=== PATIENT | female | born 1955 | race African-American/Black ===

== ENCOUNTER 2023-09-28 12:34 | Inpatient (IN) | payer MEDICARE, MEDICAID ==
[~2023-09-28] VITALS: Ht 167.6 cm; Wt 70.3 kg
[2023-09-28 13:09] VITALS: BP_SYST 125; PULSE 97; RESP 15; TEMP 97.6; O2SAT 100
[2023-09-28] MEDS: NACL 0.9% 1,000 ML IV ONE (13:31)
[2023-09-28 13:53] LABS: INR 1.2 (0.8-1.2); PROTHROMBIN TIME 12.3 SECS (9.5-12.5)
[2023-09-28 13:58] LABS: ALANINE AMINOTRANSFERASE 19 U/L (12-78); ALBUMIN 3.7 g/dL (3.4-4.8); ANION GAP 14 (5-15); ASPARTATE AMINOTRANSFERASE 61 U/L (10-37); BILIRUBIN,DIRECT 0.8 mg/dL (0.0-0.3); CALCIUM 7.9 mg/dL (8.4-11.0); CARBON DIOXIDE 19 mmol/L (23-29); CHLORIDE 106 mmol/L (98-107); CREATININE 0.77 mg/dL (0.55-1.30); GFR AFRICAN AMERICAN 96 mL/min (>90); GLUCOSE 94 mg/dL (74-106); LIPASE 21 U/L (16-77); POTASSIUM 3.5 mmol/L (3.5-5.1); SODIUM SERUM 139 mmol/L (136-145); TOTAL BILIRUBIN 2.8 mg/dL (0.0-1.0); TOTAL PROTEIN, SERUM 6.7 g/dL (6.4-8.3); UREA NITROGEN, BLOOD 16 mg/dL (8-21)
[2023-09-28 14:01] LABS: ACETAMINOPHEN < 1 ug/mL (1-30); ALCOHOL, BLOOD < 3 mg/dL (<10); GFR NON AFRICAN-AMERICAN 79 mL/min (>90); SALICYLATE < 1 mg/dL (3-30)
[2023-09-28 14:22] LABS: MEAN CORPUSCULAR HEMOGLOBIN 37 pg (27-31); MEAN CORPUSCULAR HGB CONC 35 % (32-36); MEAN CORPUSCULAR VOLUME 105 fL (79.0-98.0); PLATELET COUNT (AUTO) 63 K/uL (130-430); RED CELL DISTRIBUTION WIDTH 40.9 % (9.0-15.0)
[2023-09-28 14:30] LABS: HEMOGLOBIN 2.9 g/dL (12.0-16.0); RED BLOOD CELL COUNT(AUTO) 0.78 MIL/uL (4.2-6.2)
[2023-09-28 14:31] LABS: HEMATOCRIT 8.2 % (36-48)
[2023-09-28 14:33] LABS: BASOPHILS % (MANUAL) 0 % (0-2); EOSINOPHILS % (MANUAL) 0 % (0-7); LYMPHOCYTES % (MANUAL) 36 % (20-46); MONOCYTES % (MANUAL) 4 % (0-11); PLATELET ESTIMATE DECREASED (ADEQUATE); POLYCHROMASIA 1+
[2023-09-28 14:34] LABS: ANISOCYTOSIS 3+; OVALOCYTES FEW; TEAR DROP CELLS FEW
[2023-09-28] MEDS ORDERED: ONDANSETRON HCL 4 MG/2 ML VIAL IVP PRN (17:30)
[2023-09-28] MEDS ORDERED: MORPHINE 2 MG/ML INJ. SYRINGE IVP PRN ×2 (17:30)
[2023-09-28] MEDS ORDERED: ACETAMINOPHEN 325 MG TABLET PO PRN (17:30)
[2023-09-28] MEDS ORDERED: MUPIROCIN 2% TOPICAL OINTMENT 22 GM NS PRN (17:30)
[2023-09-28] MEDS ORDERED: MAGNESIUM SULFATE 50 ML IV PRN (17:30)
[2023-09-28 20:00] VITALS: BP_SYST 156; PULSE 89; RESP 18; TEMP 99; O2SAT 100
[2023-09-28] MEDS ORDERED: ATEN50TA PO (20:11)
[2023-09-29] VITALS (8 sets, daily range): BP systolic 135–156; PULSE 72–86; RESP 16–20; TEMP 97.5–99.2; O2SAT 96–100
[2023-09-29 00:58] LABS: BASOPHILS % (AUTO) 0.1 % (0.0-2.0); EOSINOPHILS % (AUTO) 0.3 % (0.0-4.0); LYMPHOCYTES # (AUTO) 0.9 K/uL (1.0-5.5); MEAN CORPUSCULAR HEMOGLOBIN 35 pg (27-31); MEAN CORPUSCULAR HGB CONC 36 % (32-36); MEAN CORPUSCULAR VOLUME 100 fL (79.0-98.0); MONOCYTES # (AUTO) 0.1 K/uL (0.0-1.0); MONOCYTES % (AUTO) 2.4 % (1.7-9.3); NEUTROPHILS # (AUTO) 1.4 K/uL (1.8-7.7); NEUTROPHILS % (AUTO) 61.2 % (40.0-70.0); PLATELET COUNT (AUTO) 55 K/uL (130-430); RED CELL DISTRIBUTION WIDTH 21.2 % (9.0-15.0); WHITE BLOOD COUNT (AUTO) 2.4 K/uL (4.8-10.8)
[2023-09-29 01:07] LABS: RED BLOOD CELL COUNT(AUTO) 1.45 MIL/uL (4.2-6.2)
[2023-09-29 01:11] LABS: HEMATOCRIT 14.4 % (36-48); HEMOGLOBIN 5.1 g/dL (12.0-16.0)
[2023-09-29 06:46] LABS: CALCIUM 7.5 mg/dL (8.4-11.0); CREATININE 0.73 mg/dL (0.55-1.30); POTASSIUM 3.4 mmol/L (3.5-5.1)
[2023-09-29] MEDS ORDERED: DIATR MEGLU/DIATRIZ SOD 30 ML SOLUTION PO ONE (09:37)
[2023-09-29] MEDS: ATENOLOL 25 MG TABLET(TENORMIN) PO ONE (09:45)
[2023-09-29 10:44] LABS: BASOPHILS % (AUTO) 0.2 % (0.0-2.0); EOSINOPHILS % (AUTO) 0.2 % (0.0-4.0); LYMPHOCYTES # (AUTO) 0.8 K/uL (1.0-5.5); LYMPHOCYTES % (AUTO) 30.2 % (20.5-51.5); MEAN CORPUSCULAR HEMOGLOBIN 33 pg (27-31); MEAN CORPUSCULAR HGB CONC 35 % (32-36); MEAN CORPUSCULAR VOLUME 93 fL (79.0-98.0); MONOCYTES # (AUTO) 0.1 K/uL (0.0-1.0); MONOCYTES % (AUTO) 2.1 % (1.7-9.3); NEUTROPHILS # (AUTO) 1.8 K/uL (1.8-7.7); PLATELET COUNT (AUTO) 62 K/uL (130-430); RED BLOOD CELL COUNT(AUTO) 2.37 MIL/uL (4.2-6.2); RED CELL DISTRIBUTION WIDTH 16.8 % (9.0-15.0); WHITE BLOOD COUNT (AUTO) 2.7 K/uL (4.8-10.8)
[2023-09-29 10:46] LABS: HEMOGLOBIN 7.8 g/dL (12.0-16.0); NEUTROPHILS % (AUTO) 67.3 % (40.0-70.0)
[2023-09-29 15:52] LABS: BILIRUBIN,DIRECT 0.7 mg/dL (0.0-0.3); THYROID STIMULATING HORMONE 16.27 uIu/mL (0.34-4.82); TOTAL BILIRUBIN, NEONATAL 2.4 mg/dL (1.4-8.7)
[2023-09-29] MEDS: POTASSIUM CHLORIDE 20 MEQ TABLET.ER PO PRN (22:35)
[2023-09-30 00:46] VITALS: BP_SYST 150; PULSE 78; RESP 17; TEMP 98.4; O2SAT 100
[2023-09-30 06:14] LABS: BASOPHILS % (AUTO) 0.2 % (0.0-2.0); EOSINOPHILS % (AUTO) 0.5 % (0.0-4.0); LYMPHOCYTES # (AUTO) 0.8 K/uL (1.0-5.5); LYMPHOCYTES % (AUTO) 38.4 % (20.5-51.5); MEAN CORPUSCULAR HEMOGLOBIN 34 pg (27-31); MEAN CORPUSCULAR HGB CONC 36 % (32-36); MEAN CORPUSCULAR VOLUME 95 fL (79.0-98.0); MONOCYTES # (AUTO) 0.1 K/uL (0.0-1.0); MONOCYTES % (AUTO) 3.2 % (1.7-9.3); NEUTROPHILS # (AUTO) 1.2 K/uL (1.8-7.7); NEUTROPHILS % (AUTO) 57.7 % (40.0-70.0); RED CELL DISTRIBUTION WIDTH 17.7 % (9.0-15.0); WHITE BLOOD COUNT (AUTO) 2.1 K/uL (4.8-10.8)
[2023-09-30 06:33] LABS: CALCIUM 7.4 mg/dL (8.4-11.0); CREATININE 0.73 mg/dL (0.55-1.30); POTASSIUM 3.6 mmol/L (3.5-5.1)
[2023-09-30 07:17] LABS: RED BLOOD CELL COUNT(AUTO) 1.94 MIL/uL (4.2-6.2)
[2023-09-30 07:20] LABS: HEMOGLOBIN 6.6 g/dL (12.0-16.0)
[2023-09-30 07:21] LABS: HEMATOCRIT 18.5 % (36-48); PLATELET COUNT (AUTO) 35 K/uL (130-430)
[2023-09-30 07:31] LABS: BILIRUBIN,URINE 1+ (NEGATIVE); CLARITY/URINE CLEAR (CLEAR); COLOR,URINE YELLOW (YELLOW); GLUCOSE,URINE NEGATIVE (NEGATIVE); KETONES,URINE NEGATIVE (NEGATIVE); LEUKOCYTE ESTERASE ,URINE NEGATIVE (NEGATIVE); NITRITE, URINE NEGATIVE (NEGATIVE); PROTEIN URINE 1+ (NEGATIVE)
[2023-09-30 08:00] VITALS: BP_SYST 147; BP_SYST 167; PULSE 63; PULSE 73; RESP 18; TEMP 97.5; TEMP 97.8; O2SAT 100; O2SAT 98
[2023-09-30 08:20] LABS: TOTAL IRON BIND. CAPACITY 188 ug/dL (250-450)
[2023-09-30 08:23] LABS: BACTERIA,URINE RARE /HPF (None Seen); BLOOD, URINE TRACE (NEGATIVE); RBC,URINE 0-3 /HPF (0-3); UROBILINOGEN,URINE >=8 (0.2-1.0); WBC,URINE 0-3 /HPF (0-3)
[2023-09-30 08:24] LABS: MUCUS,URINE 1+ /LPF (None Seen)
[2023-09-30 08:25] LABS: RETICULOCYTE COUNT 5.6 % (0.5-1.5)
[2023-09-30 08:50] VITALS: O2SAT 100
[2023-09-30] MEDS: ATENOLOL 25 MG TABLET(TENORMIN) PO SCH (09:00)
[2023-09-30] MEDS: LEVOTHYROXINE SODIUM 0.025 MG TABLET PO ONE (09:58)
[2023-09-30] MEDS: DOCUSATE SODIUM 100 MG CAPSULE PO PRN (09:59)
[2023-09-30] MEDS: CYANOCOBALAMIN 1000 MCG/ML VIAL SUBCUT ONE (10:00)
[2023-09-30 11:23] VITALS: BP_SYST 146; PULSE 77; RESP 16; TEMP 97.1; O2SAT 100
[2023-09-30 15:31] VITALS: BP_SYST 146; PULSE 71; RESP 16; TEMP 97.8; O2SAT 100
[2023-09-30 20:00] VITALS: BP_SYST 140; PULSE 71; RESP 18; TEMP 98; O2SAT 100
[2023-10-01 00:04] VITALS: BP_SYST 146; PULSE 87; RESP 18; TEMP 98.3; O2SAT 99
[2023-10-01 06:56] LABS: BASOPHILS % (AUTO) 0.1 % (0.0-2.0); EOSINOPHILS % (AUTO) 0.3 % (0.0-4.0); HEMATOCRIT 22.5 % (36-48); HEMOGLOBIN 7.9 g/dL (12.0-16.0); LYMPHOCYTES # (AUTO) 0.7 K/uL (1.0-5.5); LYMPHOCYTES % (AUTO) 40.2 % (20.5-51.5); MEAN CORPUSCULAR HEMOGLOBIN 34 pg (27-31); MEAN CORPUSCULAR HGB CONC 35 % (32-36); MEAN CORPUSCULAR VOLUME 96 fL (79.0-98.0); MONOCYTES # (AUTO) 0.1 K/uL (0.0-1.0); MONOCYTES % (AUTO) 3.8 % (1.7-9.3); RED BLOOD CELL COUNT(AUTO) 2.35 MIL/uL (4.2-6.2); RED CELL DISTRIBUTION WIDTH 17.1 % (9.0-15.0)
[2023-10-01] MEDS: LEVOTHYROXINE SODIUM 0.025 MG TABLET PO SCH (07:06)
[2023-10-01 07:22] LABS: CALCIUM 7.3 mg/dL (8.4-11.0); CREATININE 0.69 mg/dL (0.55-1.30); POTASSIUM 3.6 mmol/L (3.5-5.1)
[2023-10-01 07:47] VITALS: BP_SYST 157; PULSE 75; RESP 18; TEMP 98.1; O2SAT 100
[2023-10-01 08:15] VITALS: BP_SYST 157; PULSE 75; RESP 18; TEMP 98.1; O2SAT 100
[2023-10-01 08:16] LABS: WHITE BLOOD COUNT (AUTO) 1.8 K/uL (4.8-10.8)
[2023-10-01 08:17] LABS: PLATELET COUNT (AUTO) 21 K/uL (130-430)
[2023-10-01] MEDS: CYANOCOBALAMIN 1000 MCG/ML VIAL SUBCUT SCH (09:14)
[2023-10-01] MEDS ORDERED: ESCITALOPRAM OXALATE 10 MG TABLET PO SCH (09:30)
[2023-10-01 10:37] LABS: NEUTROPHILS % (AUTO) 55.6 % (40.0-70.0)
[2023-10-01 12:10] VITALS: BP_SYST 148; PULSE 77; RESP 20; TEMP 97.6; O2SAT 97
[2023-10-01 18:20] VITALS: BP_SYST 151; PULSE 81; RESP 18; TEMP 98.2; O2SAT 98
[2023-10-01 20:00] VITALS: BP_SYST 159; PULSE 69; RESP 18; TEMP 97.6; O2SAT 99
[2023-10-02 00:05] VITALS: BP_SYST 148; PULSE 82; RESP 18; TEMP 98.4; O2SAT 96
[2023-10-02 07:04] LABS: BASOPHILS % (AUTO) 0.1 % (0.0-2.0); EOSINOPHILS % (AUTO) 0.8 % (0.0-4.0); HEMATOCRIT 22.6 % (36-48); HEMOGLOBIN 7.9 g/dL (12.0-16.0); LYMPHOCYTES # (AUTO) 0.7 K/uL (1.0-5.5); LYMPHOCYTES % (AUTO) 42.9 % (20.5-51.5); MEAN CORPUSCULAR HEMOGLOBIN 33 pg (27-31); MEAN CORPUSCULAR HGB CONC 35 % (32-36); MEAN CORPUSCULAR VOLUME 96 fL (79.0-98.0); MONOCYTES # (AUTO) 0.1 K/uL (0.0-1.0); MONOCYTES % (AUTO) 6.9 % (1.7-9.3); NEUTROPHILS % (AUTO) 49.3 % (40.0-70.0); RED BLOOD CELL COUNT(AUTO) 2.37 MIL/uL (4.2-6.2); RED CELL DISTRIBUTION WIDTH 17.3 % (9.0-15.0)
[2023-10-02 07:14] LABS: CALCIUM 7.4 mg/dL (8.4-11.0); CREATININE 0.66 mg/dL (0.55-1.30); POTASSIUM 3.5 mmol/L (3.5-5.1)
[2023-10-02 08:14] LABS: NEUTROPHILS # (AUTO) 0.8 K/uL (1.8-7.7); PLATELET COUNT (AUTO) 19 K/uL (130-430); WHITE BLOOD COUNT (AUTO) 1.6 K/uL (4.8-10.8)
[2023-10-02] MEDS: CITALOPRAM HYDROBROMIDE 20 MG TABLET PO SCH (09:00)
[2023-10-02 13:50] VITALS: BP_SYST 126; PULSE 69; RESP 18; TEMP 97.5; O2SAT 97
[2023-10-02 13:59] VITALS: O2SAT 95
[2023-10-02 18:10] VITALS: BP_SYST 126; PULSE 70; RESP 16; TEMP 97.6; O2SAT 97
[2023-10-02 19:50] VITALS: BP_SYST 156; PULSE 70; RESP 20; TEMP 96.1; O2SAT 96
[2023-10-03 00:06] VITALS: BP_SYST 151; PULSE 64; RESP 18; TEMP 97.3; O2SAT 99
[2023-10-03 06:56] LABS: BASOPHILS % (AUTO) 0.1 % (0.0-2.0); EOSINOPHILS % (AUTO) 0.9 % (0.0-4.0); HEMATOCRIT 23.3 % (36-48); HEMOGLOBIN 8.1 g/dL (12.0-16.0); LYMPHOCYTES % (AUTO) 46.1 % (20.5-51.5); MEAN CORPUSCULAR HEMOGLOBIN 33 pg (27-31); MEAN CORPUSCULAR HGB CONC 35 % (32-36); MEAN CORPUSCULAR VOLUME 94 fL (79.0-98.0); MONOCYTES # (AUTO) 0.3 K/uL (0.0-1.0); MONOCYTES % (AUTO) 13.2 % (1.7-9.3); NEUTROPHILS % (AUTO) 39.7 % (40.0-70.0); RED BLOOD CELL COUNT(AUTO) 2.48 MIL/uL (4.2-6.2); WHITE BLOOD COUNT (AUTO) 2.1 K/uL (4.8-10.8)
[2023-10-03 08:05] LABS: CALCIUM 7.8 mg/dL (8.4-11.0); CREATININE 0.58 mg/dL (0.55-1.30); POTASSIUM 3.8 mmol/L (3.5-5.1)
[2023-10-03 08:15] VITALS: BP_SYST 151; PULSE 60; RESP 16; TEMP 96; O2SAT 100
[2023-10-03 09:08] LABS: NEUTROPHILS # (AUTO) 0.8 K/uL (1.8-7.7); PLATELET COUNT (AUTO) 22 K/uL (130-430)
[2023-10-03] MEDS: CITALOPRAM HYDROBROMIDE 20 MG TABLET PO ONE (09:11)
[2023-10-03] MEDS: FOLIC ACID 1 MG TABLET PO SCH (09:11)
[2023-10-03 11:24] VITALS: BP_SYST 148; PULSE 63; RESP 18; TEMP 96.8; O2SAT 99
[2023-10-03 16:15] VITALS: BP_SYST 154; PULSE 68; RESP 16; TEMP 97.9; O2SAT 98
[2023-10-03 20:30] VITALS: O2SAT 98
[2023-10-03 22:30] VITALS: BP_SYST 153; PULSE 63; RESP 20; TEMP 96.7; O2SAT 97
[2023-10-04 07:09] LABS: LYMPHOCYTES # (AUTO) 0.9 K/uL (1.0-5.5); MONOCYTES # (AUTO) 0.4 K/uL (0.0-1.0); NEUTROPHILS # (AUTO) 1.2 K/uL (1.8-7.7); WHITE BLOOD COUNT (AUTO) 2.6 K/uL (4.8-10.8)
[2023-10-04 07:32] LABS: ALBUMIN 3.2 g/dL (3.4-4.8); CALCIUM 7.6 mg/dL (8.4-11.0); CREATININE 0.76 mg/dL (0.55-1.30); POTASSIUM 4.1 mmol/L (3.5-5.1); TOTAL BILIRUBIN 1.3 mg/dL (0.0-1.0); TOTAL PROTEIN, SERUM 6.2 g/dL (6.4-8.3)
[2023-10-04 07:36] LABS: BASOPHILS % (AUTO) 0.1 % (0.0-2.0); EOSINOPHILS % (AUTO) 0.8 % (0.0-4.0); HEMATOCRIT 23.9 % (36-48); HEMOGLOBIN 8.4 g/dL (12.0-16.0); LYMPHOCYTES % (AUTO) 36.5 % (20.5-51.5); MEAN CORPUSCULAR HEMOGLOBIN 34 pg (27-31); MEAN CORPUSCULAR HGB CONC 35 % (32-36); MEAN CORPUSCULAR VOLUME 96 fL (79.0-98.0); MONOCYTES % (AUTO) 15.7 % (1.7-9.3); NEUTROPHILS % (AUTO) 46.9 % (40.0-70.0); RED BLOOD CELL COUNT(AUTO) 2.49 MIL/uL (4.2-6.2)
[2023-10-04 08:00] VITALS: BP_SYST 138; PULSE 72; RESP 20; TEMP 97.2; O2SAT 96
[2023-10-04 08:16] LABS: PLATELET COUNT (AUTO) 29 K/uL (130-430)
[2023-10-04 09:00] VITALS: O2SAT 98
[2023-10-04] MEDS ORDERED: CYAN1TAB71 PO (10:22)
[2023-10-04] MEDS ORDERED: LEVO25TA7 PO (10:22)
[2023-10-04] MEDS ORDERED: CEL20 PO (10:25)
[2023-10-04] MEDS ORDERED: ATEN-41 PO (10:25)
[2023-10-04 11:23] VITALS: BP_SYST 140; PULSE 70; RESP 20; TEMP 98; O2SAT 97
[2023-10-04 16:56] VITALS: BP_SYST 149; PULSE 74; RESP 20; TEMP 97.2; O2SAT 96
[2023-10-04 19:00] VITALS: BP_SYST 135; PULSE 74; RESP 16; TEMP 98.2; O2SAT 96
[2023-10-04 20:00] VITALS: BP_SYST 135; PULSE 74; RESP 16; TEMP 98.2; O2SAT 96
[2023-10-05] VITALS: BP_SYST 132; PULSE 72; RESP 16; TEMP 98.2; O2SAT 96
[2023-10-05 06:41] LABS: CALCIUM 7.2 mg/dL (8.4-11.0); CREATININE 0.83 mg/dL (0.55-1.30); POTASSIUM 3.2 mmol/L (3.5-5.1)
[2023-10-05 06:48] LABS: BASOPHILS % (AUTO) 0.1 % (0.0-2.0); HEMATOCRIT 22.9 % (36-48); HEMOGLOBIN 7.9 g/dL (12.0-16.0); LYMPHOCYTES # (AUTO) 0.8 K/uL (1.0-5.5); LYMPHOCYTES % (AUTO) 34.2 % (20.5-51.5); MEAN CORPUSCULAR HEMOGLOBIN 34 pg (27-31); MEAN CORPUSCULAR HGB CONC 35 % (32-36); MEAN CORPUSCULAR VOLUME 100 fL (79.0-98.0); MONOCYTES # (AUTO) 0.4 K/uL (0.0-1.0); MONOCYTES % (AUTO) 19.1 % (1.7-9.3); NEUTROPHILS # (AUTO) 1.1 K/uL (1.8-7.7); RED CELL DISTRIBUTION WIDTH 17.1 % (9.0-15.0); WHITE BLOOD COUNT (AUTO) 2.3 K/uL (4.8-10.8)
[2023-10-05 06:58] LABS: PLATELET COUNT (AUTO) 40 K/uL (130-430)
[2023-10-05 08:00] VITALS: O2SAT 97
[2023-10-05 09:37] LABS: NEUTROPHILS % (AUTO) 45.6 % (40.0-70.0)
[2023-10-05 11:18] VITALS: BP_SYST 117; PULSE 75; RESP 16; TEMP 97.2; O2SAT 99
[2023-10-05 15:22] VITALS: BP_SYST 137; PULSE 66; RESP 16; TEMP 97; O2SAT 100
[2023-10-05 19:30] VITALS: BP_SYST 112; PULSE 66; RESP 16; TEMP 98.6; O2SAT 97
[2023-10-06] VITALS (7 sets, daily range): BP systolic 118–142; PULSE 61–71; RESP 18–20; TEMP 97–98; O2SAT 97–100
[2023-10-06 05:56] LABS: HEMATOCRIT 27.1 % (36-48); HEMOGLOBIN 9.2 g/dL (12.0-16.0); MEAN CORPUSCULAR HEMOGLOBIN 33 pg (27-31); MEAN CORPUSCULAR HGB CONC 34 % (32-36); MEAN CORPUSCULAR VOLUME 97 fL (79.0-98.0); PLATELET COUNT (AUTO) 80 K/uL (130-430); RED BLOOD CELL COUNT(AUTO) 2.79 MIL/uL (4.2-6.2); RED CELL DISTRIBUTION WIDTH 21.5 % (9.0-15.0); WHITE BLOOD COUNT (AUTO) 2.2 K/uL (4.8-10.8)
[2023-10-06 06:17] LABS: CALCIUM 7.8 mg/dL (8.4-11.0); CREATININE 0.66 mg/dL (0.55-1.30); POTASSIUM 3.9 mmol/L (3.5-5.1)
[2023-10-06 09:24] LABS: ATYPICAL LYMPHOCYTES % 2 % (0-0); BAND % (MANUAL) 8 % (0-6); BASOPHILS % (MANUAL) 0 % (0-2); EOSINOPHILS % (MANUAL) 0 % (0-7); LYMPHOCYTES % (MANUAL) 21 % (20-46); MONOCYTES % (MANUAL) 11 % (0-11)
[2023-10-06 09:25] LABS: ANISOCYTOSIS 1+; PLATELET ESTIMATE DECREASED (ADEQUATE)
[2023-10-06 09:26] LABS: TEAR DROP CELLS FEW
[2023-10-07] VITALS: BP_SYST 122; PULSE 68; RESP 17; TEMP 97.8; O2SAT 98
[2023-10-07 04:01] VITALS: O2SAT 98
[2023-10-07 08:00] VITALS: BP_SYST 122; PULSE 67; RESP 18; TEMP 98; O2SAT 99
[2023-10-07] MEDS: DOCUSATE SODIUM 100 MG CAPSULE PO SCH (09:54)
[2023-10-07] MEDS: FERROUS SULFATE 325 MG TABLET.DR PO SCH (09:55)
[2023-10-07 11:11] VITALS: BP_SYST 122; PULSE 67; RESP 18; TEMP 98.9; O2SAT 99
[2023-10-07 12:00] VITALS: BP_SYST 105; PULSE 74; RESP 18; TEMP 98.6; O2SAT 98
[2023-10-07] MEDS ORDERED: MIRTAZAPINE 15 MG TABLET PO SCH (21:00)
== END 2023-10-07 15:43 | disposition home or self-care (01) | DRG 809 ==
LOC: SED 12:34 → STU 17:26 → SMU 10-02 08:49
PROVIDERS: ADMIT Family Medicine; ATTEND Family Medicine
PROC: 30233N1 Transfusion of Nonautologous Red Blood Cells into Peripheral Vein, Percutaneous Approach (ICD-10-PCS; principal; 2023-09-28)
DX: D61.818 Other pancytopenia (principal); E44.0 Moderate protein-calorie malnutrition; R62.7 Adult failure to thrive; D63.8 Anemia in other chronic diseases classified elsewhere; E27.8 Other specified disorders of adrenal gland; F32.A Depression, unspecified; I10 Essential (primary) hypertension; E03.9 Hypothyroidism, unspecified; E53.8 Deficiency of other specified B group vitamins; Z68.25 Body mass index [BMI] 25.0-25.9, adult; Z79.899 Other long term (current) drug therapy
CPT/HCPCS: 36415; 70450-TC; 71045; 76856; 80048; 80053; 80076; 81000; 81001; 81015; 82140; 82247; 82248; 82948; 83540; 83550; 83605; 83690; 83735; 83880; 84443; 84484; 85007; 85018; 85025; 85027; 85044; 85610; 85730; 86304; 86340; 86880; 86886; 86900; 86901; 86920; 87040; 93005; 96360; 97110-GP; 97112-GP; 97116-GP; 97530-GP; 99291; G0378; G0480; G0481; G0482; J3420; P9021; Q9964; Q9967